=== PATIENT | female | born 1975 | race Caucasian/White ===

== ENCOUNTER 2016-08-09 06:25 | Day surgery (SDC) | payer OTHER ==
[~2016-08-09] VITALS: Ht 165.1 cm; Wt 76.0 kg
[2016-08-09] VITALS (11 sets, daily range): BP systolic 109–144; BP diastolic 78–96; PULSE 76–105; RESP 10–19; O2SAT 88–100
[~2016-08-09 06:25] MED LIST: CeFAZolin 2 Gm/50 mL D5W IV Premix IV ONE; Lactated Ringer's 1,000 ML IV SCH; OXYC5CAP4 PO
[2016-08-09] MEDS ORDERED: Ondansetron 2 mg/mL 2 mL Inj ONE (06:26)
[2016-08-09] MEDS ORDERED: fentaNYL-PF 50 mCg/mL 2 mL Inj ONE (06:26)
[2016-08-09] MEDS ORDERED: MetoCLOpramide 5 mg/mL 2 mL Inj ONE (06:26)
[2016-08-09] MEDS ORDERED: Dexamethasone 4 mg/mL Inj ONE (06:26)
[2016-08-09] MEDS ORDERED: Propofol 10,000 mCg/mL 20 mL Inj ONE (06:26)
[2016-08-09] MEDS ORDERED: Lactated Ringer's 1,000 ML IV ONE (08:28)
[2016-08-09] MEDS ORDERED: Lactated Ringer's 1,000 ML IV SCH (08:54)
[2016-08-09] MEDS ORDERED: Lactated Ringer's 500 ML IV PRN (08:54)
--- NOTE | 2016-08-09 08:54 | PCM.HPANE ---
Patient Data Surgeon Admitting Provider: Attending Provider:Fransisco Fraser MD Primary Care Physician:Nate Mcneal PA-C Other Provider: Reason for Visit Left Distal Radius Fracture Ht/WT & BMI Height (Feet): 5 Height (Inches): 5 Weight (Kilograms): 72.57 Body Mass Index 26.00 Allergies Coded Allergies: No Known Drug Allergies (Verified Allergy, Unknown, 04/14/15) Past Anesthesia History Anesthesia History: Denies:: Abnormal Airway, Anesthesia Reactions, Difficult Intubation, Fam Anesthesia Reaction, Fam Malignant Hypertherm, Malignant Hyperthermia Diabetes History Hx Diabetes?: No MRSA MRSA: No Medications Hypertension Medication: No Home Meds Incl Beta Peggy: No Reported Medications oxyCODONE 5 Mg Capsule5-10 Mg PO Q4H PRN For Pain Ref 0 08/04/16 Discontinued Reported Medications Omeprazole (Prilosec)20 Mg Capcr20 Mg PO DAILY 30 Days Ref 0 04/14/15 Hydrocodone-Acetaminophen 5-325 mg 1 Each Tablet1 Tablet PO Q4H PRN For Pain Ref 0 04/14/15 History HEENT History: Denies:: Abnormal Airway Difficult Intubation Dysphagia Hearing Problem Hx of Heart Problems?: No Cardiovascular History: Denies:: AICD Atrial Fibrillation Chest Pain Hypertension Pacemaker Valvular Heart Disease Hx of Respiratory Problem?: No Respiratory History: Denies:: Asthma COPD Cough Hemoptysis Oxygen Administration Pneumonia Tuberculosis Use of C-PAP Machine Neurological History: Denies:: CVA Dementia Multiple Sclerosis Parkinson's Disease Seizures Hx of GI Problems?: Yes Gastrointestinal History: Positive for:: Gall Bladder Disease (removed) Gastroesphageal Reflux (occasional, omeprazole otc) Denies:: Cirrhosis Diverticulitis Hiatal Hernia Rectal Bleeding Other GI Pertinent History: hx of irritable bowel syndrome Hx of Problems?: No Genitourinary History: Denies:: Kidney Stones Urinary Tract Infection Female Hx: Denies:: Currently Problems with Breasts? Skin History: Denies:: History Skin Disorders? Hx Musculoskeletal Problems?: Yes Musculoskeletal History: Positive for:: Musculoskeletal Trauma (left wrist fx , current admission problem) Denies:: Joint Replacement Psycho Social History: Denies:: Anxiety Hx Depression Hx Surgeries?: Yes (jeremy) Hx Any Other Health Problems?: Yes Other History: Denies:: Cancer Thyroid Disease Hx Diabetes: No Hx Alcohol Use: No Smoking Status: Never Smoker Stop/Bang S-Snoring: Do You Snore Loudly: No T-Tired: feel tired, fatigued: No O-Obsered: Observed not breath: No P-Blood Pressure: treated: No B- Body Mass Index > 35 kg/m2: No A- Age over 50: No N- Neck Large Circumference: No G- Gender Male: No ELODIA Total Score: 0 Risk Assessment Category Category 1A: Patient has history of documented sleep apnea, and HAS NOT received any narcotic, sedative or anesthesia administration during this stay. Category 1B: Patient has history of documented sleep apnea, and HAS received any narcotic , sedative or anesthesia administration during this stay Category 2: Patient has SUSPECTED Obstructive Sleep Apnea, and HAS received any narcotic , sedative or anesthesia administration during this stay. Category 3: Patient has SUSPECTED Obstructive Sleep Apnea and HAS NOT received narcotic, sedative or anesthesia administration during this stay. Category 4: Outpatient in Procedural Areas with known sleep apnea or who screen positive for High Risk via the STOP/BANG questionnaire. Exam Exam General Appearance: Alert, Oriented X3, Cooperative, No Acute Distress HEENT/AIRWAY: MP 2 Lungs: Clear to Auscultation Heart: Exam Unremarkable Plan Impression Patient chart reviewed, patient interviewed and anesthestic plan with risks, benefits, and alternatives discussed, and informed consent obtained. NPO Status: > 8 hrs ASA Physical Status: ASA2 Mod Systemic Disease Anesthetic Plan: GA Bene/Risks/Altern/Consents: Yes HP Complete Prior to Induction: Yes Ben Way MD Aug 08, 2016 15:39
[2016-08-09] MEDS ORDERED: Dexamethasone 4 mg/mL Inj IVPUSH PRN (08:55)
[2016-08-09] MEDS ORDERED: Ondansetron 2 mg/mL 2 mL Inj IVPUSH PRN (08:55)
[2016-08-09] MEDS ORDERED: EPHEDrine Sulfate 50 mg/mL Inj IVPUSH PRN (08:55)
[2016-08-09] MEDS ORDERED: MetoCLOpramide 5 mg/mL 2 mL Inj IVPUSH PRN (08:55)
[2016-08-09] MEDS ORDERED: Phenylephrine 10,000 mCg/mL Inj IVPUSH PRN (08:55)
[2016-08-09] MEDS ORDERED: Bupivacaine-MPF 0.5% 30 mL Inj INJ ONE (09:00)
--- NOTE | 2016-08-09 10:44 | PCM.ANEP1 ---
Post Anesthesia Phase 1 PACU Phase 1 Assessment Vital Signs Vital Signs Date Time Temp Pulse Resp B/P Pulse Ox O2 Delivery O2 Flow Rate FiO2 08/09/16 06:46 36.4 87 16 109/85 98 Room Air Anesthetic Administered: GA Level of Alertness: Awake, talking SLOAN's with Equal Strength: Yes Pain: No Nausea or Vomiting: No Oxygen Delivery: Room Air Lungs: Clear to Auscultation Dermatome Level: Full Sensation Ben Way MD Aug 09, 2016 10:44
[2016-08-09] MEDS ORDERED: oxyCODONE-Acetamin 5-325 mg Tablet PO PRN (10:45)
[2016-08-09] MEDS ORDERED: HYDROcodone-APAP 5-325 mg Tablet PO PRN (10:45)
[2016-08-09] MEDS: HYDROmorphone 1 mg/mL Inj IVPUSH PRN ×3 (10:55→11:43)
[2016-08-09] MEDS: fentaNYL-PF 50 mCg/mL 2 mL Inj IVPUSH PRN ×2 (10:55→10:58)
--- NOTE | 2016-08-09 10:56 | PCM.ORTHOB ---
Immediate Operative Note Date of Service: Aug 09, 2016 Pre Operative Diagnosis Left distal radius fracture Post Operative Diagnosis Same Procedure Left distal radius fracture open reduction and internal fixation with bone graft Surgeon Surgeon: Fransisco Fraser MD Assistants: Derek García PA-C Findings Left distal radius comminuted, displaced unstable intra-articular dye punch type fracture. Following open reduction and internal fixation with cancellus bone graft the over 3 part intra-articular fracture was satisfactorily reduced and stabilized with a Synthes 2.4 mm Delta VA-CCP 3-hole shaft and 6 hole distal narrow volar locking plate. Fixation was achieved distally with 6 x 2.4 mm locking screws and proximally with 3 x 2.7 mm bicortical screws. Intra- articular fluoroscopic views with mini C-arm confirmed satisfactory reduction and fixation without any intra-articular penetration or dorsal cortical penetration from our placed hardware. Grafts, Implants: Implants-See Implant Record Complications There were no periprocedural complications identified. Condition Stable Anesthetic Administered: GA Drains: None Catheters: None Output, Estimated Blood Loss: 3 Blood Admin during surgery: No Surgical Specimen Removed: No Surgical Specimen sent to Path: No Post Operative Plan The patient will be discharged from daycare surgery when protocol is met. The patient will avoid any strenuous or weightbearing activities with regards to her left wrist and hand for the next 6 weeks postop. The patient will return to the orthopedic clinic as an outpatient on or after postoperative day #12 for postoperative splint removal, suture removal and repeat x-rays of her left wrist. The patient will be converted to a left cockup wrist splint at that time to allow for early wrist and hand range of motion exercises to begin. Fransisco Fraser MD Aug 09, 2016 10:56
--- NOTE | 2016-08-09 11:07 | PCM.ORTHOP ---
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 The patient's physical exam, left wrist x-rays and CT scan confirm a displaced, multi part, comminuted, intra-articular distal radius fracture. The patient presents today for open reduction and internal fixation of her left distal radius fracture with a volar distal radial locking plate and bone graft. The skilled assistance of a physician's sociology research assistant, Derek García PA-C, was necessary for the successful completion of this case. The PA was essential for the proper positioning, manipulation of instruments, proper exposure, manipulation of tissues and wound closure. Findings Left distal radius comminuted, displaced unstable intra-articular dye punch type fracture. Following open reduction and internal fixation with cancellus bone graft the over 3 part intra-articular fracture was satisfactorily reduced and stabilized with a Synthes 2.4 mm Delta VA-CCP 3-hole shaft and 6 hole distal narrow volar locking plate. Fixation was achieved distally with 6 x 2.4 mm locking screws and proximally with 3 x 2.7 mm bicortical screws. Intra- articular fluoroscopic views with mini C-arm confirmed satisfactory reduction and fixation without any intra-articular penetration or dorsal cortical penetration from our placed hardware. Details of Procedure Patient was brought to the OR and given a general anesthetic. She is placed in the supine position and the left upper extremity was abducted onto a hand table. The left upper extremity received a trauma scrub and a tourniquet was placed high about the left arm. Left upper extremity was then prepped and draped in usual sterile fashion. The limb was elevated and exsanguinated and the tourniquet inflated to 200 mmHg. Proceeded through a 8 cm longitudinal incision over the distal flexor carpi radialis tendon. The incision was gently curved radially possible volar radial wrist flexor crease. We deepened through subcutaneous tissues. Care is taken to identify and avoid, with gentle traction , the radial artery and nerve retracted radially. The flexor carpi radialis, median nerve and flexor tendons were carefully retracted ulnar. We deepened our exposure to the flexor pollicis longus and pronator quadratus musculature which were elevated in a subperiosteal fashion off the radial border of the distal radius to the radial styloid. We then divided the periosteum and musculature fascia transversely from radial to ulnar at the level the watershed line. We evacuated the soft tissue and fracture hematoma from the fracture site and confirmed the presence of a displaced, more than 3 part, unstable intra -articular distal radius fracture. We disimpacted the multiple depressed and displaced intra-articular fragments including the large radial styloid fragment and filled the resulting metaphyseal void with small pieces of cancellous bone graft. The radial styloid fragment was then provisionally pinned with a smooth K-wire and a Synthes left volar delta shaped 2.4 mm VA CCP was applied to the volar surface of the distal radius spanning the fracture site. The plate was secured distally with 6 x 2.4 mm locking screws and proximally to the shaft with 3 x 2.7 mm bicortical screws. Intraoperative fluoroscopic mini C-arm views confirmed satisfactory reduction and fixation of the fracture without any intra-articular or dorsal cortical violation from our placed hardware. The wound was then thoroughly irrigated. The pronator quadratus was then reattached over the distal radial plate with interrupted 3-0 Vicryl suture. Subcutaneous tissues were closed similarly with interrupted 3-0 Vicryl suture. The skin was closed with a running 3-0 Prolene subcuticular stitch. The wound was dressed with Xeroform and fluff gauze dressings. The patient was placed into well-padded volar splint and the tourniquet was deflated. The patient was taken back to PACU in stable and satisfactory condition. There were no complications. Patient tolerated the procedure well. Grafts, Implants: Implants-See Implant Record Complications There were no periprocedural complications identified. Condition Stable Anesthetic Administered: GA Drains: None Catheters: None Output, Estimated Blood Loss: 3 Blood Admin during surgery: No Surgical Specimen Removed: No Specimen sent to Pathology: No Post Operative Plan The patient will be discharged from daycare surgery when protocol is met. The patient will avoid any strenuous or weightbearing activities with regards to her left wrist and hand for the next 6 weeks postop. The patient will return to the orthopedic clinic as an outpatient on or after postoperative day #12 for postoperative splint removal, suture removal and repeat x-rays of her left wrist. The patient will be converted to a left cockup wrist splint at that time to allow for early wrist and hand range of motion exercises to begin. copies to: Nate Mcneal PA-C; Fransisco Fraser MD, Michael G.E MD Aug 09, 2016 11:07
--- NOTE | 2016-08-09 11:29 | DRSVH ---
PROCEDURE: X-RAY LEFT WRIST COMPLETE, MINIMUM THREE VIEWS ([id number]) INDICATIONS: postop TECHNIQUE: 3 views of the wrist were acquired. COMPARISON: [facility], [place], XR WRIST 3VW LT, 08/04/2016, 8:20. FINDINGS: Bones: There has been interval ORIF of the distal radial fracture. Hardware is intact. There is goo d anatomic alignment. Overlying cast material obscures fine detail. Soft tissues: No suspicious soft tissue calcifications. IMPRESSION: Interval ORIF as above. Dictated by: Paola Moran M.D. on 08/09/2016 at 11:27 Approved by: Paola Moran M.D. on 08/09/2016 at 11:27
--- NOTE | 2016-08-09 12:01 | PCM.ANEP2 ---
Post Anesthesia Evaluation ASA/CMS Post Anesthesia VS in Patient's Normal Range?: Yes Resp Stable; Airway Patent?: Yes CV Function & Hydration Stable: Yes Mental Status Recovered?: Yes Pain control Satisfactory?: Yes N/V Control Satisfactory?: Yes Ben Way MD Aug 09, 2016 12:01
== END 2016-08-09 23:59 | disposition home or self-care (01) ==
LOC: SAS 06:25
PROVIDERS: ATTEND Orthopaedic Surgery
DX: S52.572A Other intraarticular fracture of lower end of left radius, initial encounter for closed fracture (principal); W10.9XXA Fall (on) (from) unspecified stairs and steps, initial encounter; Y92.019 Unspecified place in single-family (private) house as the place of occurrence of the external cause; Y99.9 Unspecified external cause status; Y93.9 Activity, unspecified; Z86.010 Personal history of colon polyps; K58.9 Irritable bowel syndrome, unspecified; Z87.442 Personal history of urinary calculi; K21.9 Gastro-esophageal reflux disease without esophagitis
CPT/HCPCS: 25609; 73110; 76000; C1713; J0690; J1100; J1170; J2250; J2405; J2765; J7120